=== PATIENT | female | born 1965 | race Caucasian/White ===

== ENCOUNTER → 2023-07-02 | Outpatient (CLI) | payer BC ==
[2023-07-02 10:36] VITALS: BP 131/86; PULSE 63; RESP 17; TEMP 98.4
--- NOTE | 2023-07-02 11:13 | P.HPOB ---
History of Present Illness H&P Date: 07/02/23 Chief Complaint: The patient is here for her routine gynecologic exam. This is a 58-year-old with an LMP of 2020. The patient is here to establish with this office. It has been about 3 years since her last pelvic exam. She states she has been experiencing occasional dull right pelvic aching especially when she crosses her legs. This has gone on for several years. More recently, she has noticed for the past few months a pressure in the vagina in the area of the cervix. She states this is similar to when she previously had menstrual periods. She is otherwise without complaints and denies any postmenopausal bleeding. Review of Systems She has gained about 5 pounds over the past 4 months. She denies respiratory or cardiac problems. GI: See foods seem to aggravate her digestive tract. Past Medical History Past Medical History: No Reported History Additional Past Medical History / Comment(s): Environmental ALLERGIES. 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 History of Any Multi-Drug Resistant Organisms: None Reported Past Surgical History: No Surgical Hx Reported, Breast Surgery Additional Past Surgical History / Comment(s): BENIGN BREAST BX 2000, bilateral breast saline implants 1999 .COLONOSCOPY 2023(next after 5yr). Past Anesthesia/Blood Transfusion Reactions: No Reported Reaction Past Psychological History: No Psychological Hx Reported Smoking Status: Never smoker Past Alcohol Use History: Daily (About 2 drinks per day.) Past Drug Use History: None Reported Additional History: She has been since 1994. 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 - Past Family History Mother Family Medical History: Cancer, Dementia Additional Family Medical History / Comment(s): Alzheimer dementia. Thyroid and breast cancer. . Father Family Medical History: Congestive Heart Failure (CHF) Additional Family Medical History / Comment(s): Had a pacemaker. . Medications and Allergies Home Medications Medication Instructions Recorded Confirmed Type Cholecalciferol (Vitamin D3) 1 cap PO DAILY 07/02/23 07/02/23 History [Vitamin D3 (125 MCG = 5,000 IU)] Cyanocobalamin [Vitamin B-12] 1 tab PO DAILY 07/02/23 07/02/23 History Fexofenadine HCl [Jenna Allergy] 1 cap PO DAILY 07/02/23 07/02/23 History Magnesium 1 tab PO DAILY 07/02/23 07/02/23 History Allergies Allergy/AdvReac Type Severity Reaction Status Date / Time No Known Allergies Allergy Unverified 07/02/23 09:52 Exam Vital Signs Temp Pulse Resp BP Pulse Ox 07/02/23 09:55 98.4 F 63 17 131/86 97 Intake and Output 07/01/23 07/02/23 07/02/23 22:59 06:59 14:59 Other: Weight 83.007 kg Height 5 feet 6 inches, weight 183 pounds, BMI 29.5. This is a well-developed well-nourished white female who is alert and oriented times 3 in no acute distress. HEENT: Within normal limits. NECK: Supple without mass or thyromegaly. CHEST AND LUNGS: Clear to auscultation. HEART: Regular rate and rhythm. BREASTS: Are without mass or discharge. AXILLARY EXAM: Negative for adenopathy. BACK: Negative for CVA tenderness. ABDOMEN: Soft, without palpable masses. There is minimal right lower quadrant tenderness with deep palpation. There is no rebound tenderness. PELVIC EXAM: Normal external genitalia with mild atrophy. Cervix and vagina appear normal mild atrophy. There is no cervical motion tenderness. There is no unusual discharge. There is no evidence of prolapse. The uterus is mi dposition, nongravid size and nontender. There are no palpable adnexal masses or tenderness. RECTAL EXAM: rectovaginal exam is negative for mass or tenderness and is negative for occult blood. EXTREMITIES: Nontender. IMPRESSION: 1. 58-year-old menopausal female with normal gynecologic exam. 2. Several year history of right pelvic dull aching especially with crossing her legs. This probably is musculoskeletal in nature, but gynecologic etiology is possible. 3. Three-month history of pelvic pressure in the cervical area without significant physical findings on exam today. PLAN: 1. Pap smear cotest was performed. 2. Self breast awareness was discussed with the patient. We have also discussed symptoms associated with inflammatory breast cancer. 3. Screening mammogram was done in April elsewhere and this was normal per the patient. She will feet this after 1 year. 4. Osteoporosis prevention was discussed. I have stressed the importance of adequate calcium, vitamin D and regular exercise. Recommended amounts of calcium and vitamin D were also discussed. I recommended a bone density test at age 59 5. Pelvic ultrasound was recommended to further evaluate her symptoms. The order slip was given to the patient for this. 6. She was advised to return in one year for her annual well woman exam.
== END ==
LOC: WWCWWP 09:43
PROVIDERS: ATTEND Obstetrics & Gynecology
DX: Z01.419 Encounter for gynecological examination (general) (routine) without abnormal findings (principal)

== ENCOUNTER → 2024-08-07 | Outpatient (CLI) | payer BC ==
--- NOTE | 2024-08-07 11:10 | NM ---
EXAMINATION TYPE: NM stress cardiolite complete DATE OF EXAM: 08/07/2024 COMPARISON: NONE CLINICAL INDICATION: Female, 59 years old with history of R94.31 ABNORMAL ELECTROCARDIOGRAM [ECG] [EK G]; TECHNIQUE: After the intravenous administration of 10.0 mCi Tc 99m Sestamibi - Rest images obtained 45 minutes post injection. The patient exercised using a CASSIA protocol and 1 minute prior to peak exercise was injected with 25.0 mCi Tc 99m Sestamibi - Stress images obtained 60 minutes post injecti on. FINDINGS: Targeted heart rate was achieved during performance of the study. Review of stress and rest SPECT dg ges demonstrates reversible ischemia involving the anteroseptal wall near the base. Correlate for str ess-induced ischemia. Gated analysis shows normal wall motion with an estimated left ventricular ejec tion fraction of 70 %. IMPRESSION: Examination demonstrates reversible ischemia involving the anteroseptal wall near the base. Correlate for stress-induced ischemia. [facility], , 08/07/2024 11:08 AM
--- NOTE | 2024-08-07 16:18 | CA ---
Exercise Stress Test Report Name: Filomena Evans Exam Date: 08/07/2024 09:09 Exam Location: [facility] Stress Ht (in): 66 Wt (lb): 177 BSA: 1.90 Ordering Phys: Maria Teresa Morales DO Referring Phys: Florencia Dash PAC Technologist: JUAN M BAÑUELOS Age: 59 Gender: F : 1965 Procedure CPT: Indications: R94.31 ABNORMAL ELECTROCARDIOGRAM [ECG] [EKG] ICD-10 Codes: Patient History: Medications: ZYRTEC,,,, VITAMINS,,, Meds past 24 hrs: Pretest Chest Pain: STRESS TEST Ko Protocol Exercise Duration (min:sec): 09:[address] Depressions (mm): Angina Score: Hemphill Score: Resting HR (bpm): 67 Peak HR (bpm): 139 Resting BP (mmHg): 140 / 91 Peak BP (mmHg): 189 / 59 MPHR: 160 Target HR: 136 % MPHR: 87 METS: 10.3 Total Dose: Peak Dose: Atropine: Double Product: 02933 BP Response: Stress Termination: TARGET HR REACHED/MAX EXERTION Stress Symptoms: DIZZINESS Stress Summary: ECG ANALYSIS Resting ECG: Stress ECG: CONCLUSIONS Patient underwent exercise stress Cardiolite with a Ko protocol treadmill stress test. Patient exercised into Stage 3 for a total of 9-minute reaching a total of 10.3 METS. Patient's maximum heart rate was 139 which represented 86% age- predicted maximum heart rate. Stress EKG findings: At baseline patient's EKG showed normal sinus rhythm, left bundle branch block with nonspecific ST depressions in 1 and aVL.. At peak exercise, EKG showed no significant change from baseline. Conclusions: 1. Nonspecific stress EKG portion second baseline EKG abnormalities. 2. Fair exercise capacity. 3. Nuclear portion to be reported separately Dr. Americo Ojeda DO (Electronically Signed) Final Date: 07 Aug 2024 16:17
== END | disposition home or self-care (01) ==
LOC: RADNMMAIN 07:32
PROVIDERS: ATTEND Family Medicine
DX: R94.31 Abnormal electrocardiogram [ECG] [EKG] (principal); Z82.49 Family history of ischemic heart disease and other diseases of the circulatory system
CPT/HCPCS: 93017; 78452; A9500

== ENCOUNTER 2024-09-29 05:43 | Day surgery (SDC) | payer BC ==
[2024-09-29] MEDS ORDERED: ALPRAZolam 0.25 MG TAB PO PRN (06:01)
[2024-09-29] MEDS ORDERED: NITROGLYCERIN SL TABS 0.4 MG TAB SUBLINGUAL PRN (06:01)
[2024-09-29] MEDS ORDERED: ALPRAZolam 0.5 MG TAB PO PRN (06:01)
[2024-09-29] MEDS: SODIUM CHLORIDE 0.9% 1,000 ML in EMPTY BAG 1 BAG IV SCH (06:34)
[2024-09-29] MEDS: ATORVASTATIN 80 MG TAB PO STA (06:34)
[2024-09-29] MEDS: ASPIRIN 325 MG TAB PO STA (06:34)
[2024-09-29] MEDS: IV FLUID CONTINUATION 1,000 ML IV ONE (06:35)
[2024-09-29 06:39] VITALS: RESP 16; TEMP 97.9
[2024-09-29 06:43] LABS: Basophils # (A) 0.07 10*3/uL (0.00-0.10); Eosinophils # (A) 0.59 10*3/uL (0.04-0.35); Eosinophils % (A) 8.8 %; HCT 39.1 % (37.2-46.3); HGB 13.3 g/dL (12.0-15.0); Lymphocytes # (A) 2.57 10*3/uL (0.90-5.00); Lymphocytes % (A) 38.5 %; MCH 32.4 pg (27.0-32.0); MCV 95.1 fL (80.0-97.0); Mean Platelet Volume 9.9 fL (9.5-12.2); Monocytes # (A) 0.63 10*3/uL (0.20-1.00); Monocytes % (A) 9.4 %; Neutrophils % (A) 42.2 %; Platelet Count 314 10*3/uL (140-440); RBC 4.11 10*6/uL (4.10-5.20); WBC 6.67 10*3/uL (4.50-10.00)
[2024-09-29 06:52] LABS: African American GFR (CKD) 84 (>60 ml/min/1.73 sqM); Anion Gap 10 mmol/L; Blood Urea Nitrogen 15 mg/dL (7-17); Calcium 9.2 mg/dL (8.4-10.2); Carbon Dioxide 22 mmol/L (22-30); Chloride 106 mmol/L (98-107); Glucose 104 mg/dL (74-99); Non-African American GFR(CKD) 73 (>60 ml/min/1.73 sqM); Potassium 3.8 mmol/L (3.5-5.1); Sodium 138 mmol/L (137-145)
[2024-09-29] MEDS: HEPARIN SODIUM,PORCINE 10,000 UNIT in SODIUM CHLORIDE 0.9% 1,000 ML IRRIGATION PRN (07:24)
[2024-09-29] MEDS: HEPARIN SODIUM,PORCINE (1 ML) 2,500 UNIT in SODIUM CHLORIDE 0.9% 250 ML IRRIGATION PRN (07:25)
[2024-09-29] MEDS: fentaNYL (PF) 50 MCG/1 ML VIAL IVP ONE (07:55)
[2024-09-29] MEDS: MIDAZOLAM 2 MG/2 ML VIAL IVP ONE (07:58)
[2024-09-29] MEDS: LIDOCAINE 1% INJ 10MG/ML (20 ML MDV) SQ ONE (07:58)
[2024-09-29] MEDS: HEPARIN SODIUM 1,000 UN/ML (10ML VL) IVP ONE (08:02)
[2024-09-29] MEDS: IOPAMIDOL-370 100ML BTL INJ ONE (08:18)
[2024-09-29] MEDS ORDERED: RX INFO: IV CONTRAST WAS GIVEN 1 EACH MISC MISCELLANE PRN (08:26)
[2024-09-29] MEDS ORDERED: SODIUM CHLORIDE 0.9% 1,000 ML IV SCH (08:30)
--- NOTE | 2024-09-29 08:31 | P.CARDCATH ---
Date of Procedure: 09/29/24 Description of Procedure: Cardiac Catheterization: The patient is a 59-year-old female with history of hyperlipidemia, left bundle branch block who has been complaining of episodes of chest discomfort. Had an abnormal MPI. Recommendations were made regarding cardiac catheterization, the risks and the complications were discussed with the patient who is in full understanding and agreement. 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 Using Xylocaine Anesthesia and modified Seldinger technique, a 6-Thai sheath was introduced in the right radial artery . Subsequently, selective coronary angiography was performed using a 5-Thai 3.5 bend Leonidas catheter. Multiple views of the coronary artery including hemiaxial views were obtained. The right Leonidas catheter was used to cross the aortic valve and LVEDP was calculated. Following that, catheter and sheath were removed. Hemostasis was obtained with deployment of vascular band . There was no immediate complication. Patient was returned to room in stable condition. Of note, the patient received a total of 4000 units of intravenous heparin as well as intra-arterial verapamil. Findings: Left main: This is a large size vessel, bifurcating into LAD and left circumflex, left main has no obstructive disease. LAD: This is a large size vessel, reaching to the apex with a wraparound apex segment giving rise to a proximal large septal manager assurance there appears to be a parallel LAD. The LAD and its branches have no obstructive disease Left circumflex: This is a large nondominant vessel, giving rise to 3 obtuse marginal branch, the third 1 is the largest in caliber. The left circumflex and its branches have no obstructive disease. RCA: This is a large dominant vessel, bifurcating distally to PDA and PLV giving rise to a very large proximal conus branch. The right coronary artery and its branches have no obstructive disease Left Ventriculogram: Not performed Hemodynamics: There was no gradient across the aortic valve, LVEDP was 6-8 mmHg Conclusion: 1. Normal coronary arteries 2. Right dominance 3. Normal LVEDP Recommendations: I see no evidence of obstructive disease, I have recommended to continue present therapy. The findings and the recommendations were discussed with the patient and the family and they were in full understanding and agreement. Duration of sedation is 15 minutes.
[2024-09-29 11:00] VITALS: BP 98/60; PULSE 52
[2024-09-30] MEDS ORDERED: ASPIRIN 81 MG PO SCH (09:00)
[2024-09-30] MEDS ORDERED: ATORVASTATIN 20 MG TAB PO SCH (21:00)
== END 2024-09-29 11:24 | disposition home or self-care (01) ==
LOC: CATHCVL 05:43
PROVIDERS: ATTEND Internal Medicine Interventional Cardiology
DX: I44.7 Left bundle-branch block, unspecified (principal); E78.2 Mixed hyperlipidemia; Z87.891 Personal history of nicotine dependence; Z79.82 Long term (current) use of aspirin; Z79.899 Other long term (current) drug therapy
CPT/HCPCS: 93458; 80048; 85025; 99152; C1769 ×2; C1894; J2250; J1644 ×3; J2003; Q9967; J3010

== ENCOUNTER → 2024-10-07 | Outpatient (CLI) | payer BC ==
[2024-10-07 11:09] VITALS: BP 129/81; PULSE 60; RESP 16; TEMP 98.2
--- NOTE | 2024-10-07 13:19 | P.HPOB ---
History of Present Illness H&P Date: 10/07/24 Chief Complaint: The patient is here for her routine gynecologic exam. This is a 67-year-old G2, P2 with an LMP of 2020. Patient states she has been having intermittent right pelvic pressure and pressure in the area of the cervix. She had similar complaints at her 07/02/2023 exam. She states she did not have the pelvic ultrasound done as recommended. She is wondering if the discomfort is related to times when she is dehydrated. She has also noticed it when she is working in her yard. She has noticed that her urine volume seems to have been decreased and her urinary stream seems to be weaker. She denies any postmenopausal bleeding. She is otherwise without gynecologic complaints. Review of Systems She has lost about 9 pounds over the past year. She denies respiratory, cardiac, or GI problems. Past Medical History Past Medical History: Chest Pain / Angina, Hyperlipidemia Additional Past Medical History / Comment(s): Environmental allergies. Left bundle branch block. 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 History of Any Multi-Drug Resistant Organisms: None Reported Past Surgical History: Breast Surgery Additional Past Surgical History / Comment(s): BENIGN BREAST BX 1999- right breast, bilateral breast saline implants 1999. COLONOSCOPY 2023(next after 5yr). Cardiac catheterization 2024. Past Anesthesia/Blood Transfusion Reactions: No Reported Reaction Past Psychological History: No Psychological Hx Reported Smoking Status: Never smoker Past Alcohol Use History: Occasional Additional Past Alcohol Use History / Comment(s): used to drink daily 2-3 beers; more recently she drinks a glass of wine approx 2 times a week. Past Drug Use History: None Reported Additional History: She has been since 1994. She is retired and now watches her grandchild 3 to 4 days/week. - Past Family History Mother Family Medical History: Cancer, Dementia Additional Family Medical History / Comment(s): Alzheimer dementia. Thyroid and breast cancer. . Father Family Medical History: Congestive Heart Failure (CHF) Additional Family Medical History / Comment(s): Had a pacemaker. . Medications and Allergies Home Medications Medication Instructions Recorded Confirmed Type Magnesium 1 tab PO DAILY 07/02/23 10/07/24 History Aspirin [Adult Low Dose Aspirin EC] 81 mg PO DAILY 09/25/24 10/07/24 History Atorvastatin Calcium 20 mg PO HS 09/25/24 10/07/24 History Cetirizine HCl 10 mg PO DAILY 09/25/24 10/07/24 History Cinnamon Bark [Cinnamon] 1,000 mg PO Q48H 09/25/24 10/07/24 History Montelukast Sodium 10 mg PO DAILY PRN 09/25/24 10/07/24 History Nitroglycerin 0.4 mg SL DAILY PRN 09/25/24 10/07/24 History Allergies Allergy/AdvReac Type Severity Reaction Status Date / Time No Known Allergies Allergy Unverified 10/07/24 11:02 Exam Vital Signs Temp Pulse Resp BP Pulse Ox 10/07/24 11:03 98.2 F 60 16 129/81 98 Intake and Output 10/06/24 10/07/24 10/07/24 22:59 06:59 14:59 Other: Weight 78.925 kg Height 5 feet 6 inches, weight 174 pounds, BMI 28.1. This is a well-developed well-nourished white female who is alert and oriented times 3 in no acute distress. HEENT: Within normal limits. NECK: Supple without mass or thyromegaly. CHEST AND LUNGS: Clear to auscultation. HEART: Regular rate and rhythm. BREASTS: Are without mass or discharge. AXILLARY EXAM: Negative for adenopathy. BACK: Negative for CVA tenderness. ABDOMEN: Soft, nontender, without palpable masses. PELVIC EXAM: Normal external genitalia with mild atrophy. Cervix and vagina appear normal with mild atrophy. There is no cervical motion tenderness. There is no unusual discharge. There is no evidence of prolapse. The uterus is midposition, nongravid size and nontender. There are no palpable adnexal masses or tenderness. RECTAL EXAM: Rectovaginal exam is negative for mass or tenderness and is negative for occult blood. EXTREMITIES: Nontender. IMPRESSION: 1. 59-year-old menopausal female with normal gynecologic exam. 2. Greater than 1 year history of intermittent right pelvic pressure and pressure in the back of the vagina in the area of her cervix. No significant physical findings on exam today. PLAN: 1. Pap smear was deferred since she had a negative Pap smear cotest on 07/02/2023. 2. Self breast awareness was discussed with the patient. We have also discussed symptoms associated with inflammatory breast cancer. 3. The patient states she had a screening mammogram on 09/06/2024 at [facility]. She states she was given the results and was told it was normal. 4. I have again recommended pelvic ultrasound to further evaluate the intermittent pelvic discomfort greater on the right side. She states she does not remember discussing this at her appointment 1 year ago. Her description of the symptoms were very similar to what she is describing today. This probably represents some chronic condition. I have stressed the importance of having the pelvic ultrasound done as this can possibly give us a better clue on why she is having these pains. 5. Osteoporosis prevention was discussed. I have recommended a baseline bone density test. The order slip was given to the patient for this. 6. She was advised to return in one year for her annual well woman exam and as needed.
== END ==
LOC: WWCWWP 10:51
PROVIDERS: ATTEND Obstetrics & Gynecology
DX: Z01.419 Encounter for gynecological examination (general) (routine) without abnormal findings (principal); Z78.0 Asymptomatic menopausal state